=== PATIENT | female | born 1945 | race Caucasian/White ===

== ENCOUNTER 2017-08-20 14:36 | Inpatient (IN) ==
[2017-08-20] MEDS ORDERED: SODIUM CHLORIDE 0.9% 1,000 ML IV STA (15:01)
[2017-08-20 15:21] LABS: Basophils % 0.3 % (0.0-0.8); Eosinophils % 0.1 % (0.00-10.9); Hemoglobin 11.2 GM/DL (12.0-16.0); Immature Granulocytes % 0.4 %; Immature Granulocytes Absolute 0.04 #; Lymphocytes # 0.8 10*3/uL (1.4-4.0); Lymphocytes % 8.5 % (21.3-54.2); Mean Corpuscular HGB Conc 33.9 GM/DL (32-36); Mean Corpuscular Hemoglobin 30 PG (27-34); Mean Corpuscular Volume 88.2 FL (87-102); Mean Platelet Volume 8.8 FL (9.6-12.0); Monocytes # 0.7 10*3/uL (0.11-0.8); Monocytes % 7.1 % (1.7-12.7); Neutrophils # 7.9 10*3/uL (1.4-7.4); Neutrophils % 83.6 % (38.7-73.9); Platelet Count 401 T/CUMM (130-400); Red Blood Count 3.74 MC/CUMM (3.8-5.5); Red Cell Distribution Width 17.3 % (9.3-17.3); White Blood Count 9.4 T/CUMM (4-12)
[2017-08-20 15:35] LABS: PT Patient Result 10.4 SECS; Partial Thromboplastin Time 26.8 SECS (0-40)
[2017-08-20 16:13] LABS: Potassium 3.8 MMOL/L (3.5-5.1); Sodium 137 MMOL/L (136-145)
[2017-08-20 16:15] LABS: Calcium 9.1 MG/DL (8.5-10.1)
[2017-08-20 16:16] LABS: Albumin 3.2 G/DL (3.4-5.0)
[2017-08-20 16:17] LABS: Blood Urea Nitrogen 15 MG/DL (7-18); Glucose 120 MG/DL (74-106); Osmolality,Calculated 274.8 MOS/KG (273-304)
[2017-08-20 16:20] LABS: Alanine Aminotransferase 13 U/L (13-56); Aspartate Amino Transferase 16 U/L (0-37)
[2017-08-20 16:21] LABS: Bilirubin,Total < 0.39 MG/DL (0.2-1.0); Total Protein 7.3 G/DL (6.4-8.3)
[2017-08-20 16:23] LABS: Alkaline Phosphatase 73 U/L (45-117)
[2017-08-20] MEDS ORDERED: SODIUM CHLORIDE 0.9% 1,000 ML IV PRN (17:42)
[2017-08-20] MEDS ORDERED: ONDANSETRON 4 MG/2 ML VIAL IV PRN (19:56)
[2017-08-20] MEDS ORDERED: ACETAMINOPHEN 325 MG TABLET PO PRN (19:56)
[2017-08-20] MEDS ORDERED: MAGNESIUM HYDROXIDE SUSP 30 ML UDCUP PO ONE (19:56)
[2017-08-20] MEDS ORDERED: MAGNESIUM HYDROXIDE SUSP 30 ML UDCUP PO PRN (19:56)
[2017-08-20 20:26] LABS: Hematocrit 27.9 VOL% (35.7-47.0); Hemoglobin 9.2 GM/DL (12.0-16.0)
[2017-08-20] MEDS: PANTOPRAZOLE 40 MG VIAL IV SCH (22:35)
[2017-08-20] MEDS: SODIUM CHLORIDE 0.9% 1,000 ML IV SCH (22:38)
[2017-08-21 01:24] LABS: Hematocrit 25.7 VOL% (35.7-47.0); Hemoglobin 8.4 GM/DL (12.0-16.0)
[2017-08-21 01:25] LABS: Basophils % 0.3 % (0.0-0.8); Eosinophils % 0.2 % (0.00-10.9); Hematocrit 25.2 VOL% (35.7-47.0); Hemoglobin 8.7 GM/DL (12.0-16.0); Immature Granulocytes % 0.5 %; Immature Granulocytes Absolute 0.03 #; Lymphocytes # 0.7 10*3/uL (1.4-4.0); Lymphocytes % 11.1 % (21.3-54.2); Mean Corpuscular HGB Conc 34.5 GM/DL (32-36); Mean Corpuscular Hemoglobin 30 PG (27-34); Mean Corpuscular Volume 87.5 FL (87-102); Mean Platelet Volume 8.9 FL (9.6-12.0); Monocytes # 0.6 10*3/uL (0.11-0.8); Monocytes % 9.4 % (1.7-12.7); Neutrophils # 4.8 10*3/uL (1.4-7.4); Neutrophils % 78.5 % (38.7-73.9); Platelet Count 323 T/CUMM (130-400); Red Blood Count 2.88 MC/CUMM (3.8-5.5); Red Cell Distribution Width 17.3 % (9.3-17.3); White Blood Count 6.1 T/CUMM (4-12)
[2017-08-21 01:42] LABS: Calcium 8.1 MG/DL (8.5-10.1); Osmolality,Calculated 278.4 MOS/KG (273-304); Potassium 3.7 MMOL/L (3.5-5.1)
[2017-08-21] MEDS: SODIUM CHLORIDE 0.9% 1,000 ML IV SCH ×4 (06:22→22:34)
[2017-08-21 07:27] LABS: Hematocrit 25.3 VOL% (35.7-47.0); Hemoglobin 8.4 GM/DL (12.0-16.0)
[2017-08-21] MEDS ORDERED: SODIUM CHLORIDE 0.9% 1,000 ML IV PRN (08:35)
[2017-08-21] MEDS: PANTOPRAZOLE 40 MG VIAL IV SCH ×2 (08:39→20:18)
[2017-08-21] MEDS ORDERED: PANTOPRAZOLE 40 MG TABLET PO SCH (09:00)
[2017-08-21 12:41] LABS: Apearance,Urine CLEAR (Clear); Bacteria,Urine Occasional /HPF (Few); Bilirubin,Urine Negative (Negative); Blood, Urine Negative (Negative); Glucose,Urine (UA) Negative (Negative); Ketones,Urine Negative (Negative); Mucus,Urine Occasional /LPF (Occasional); Nitrite,Urine Negative (Negative); Protein,Urine Negative; RBC,Urine <1 /HPF (0-4); Squamous Epithelial Cell,Urine Occasional /HPF (0-10); Urine Color Straw (Yellow); Urine Specific Gravity 1.008 (1.001-1.035); Urine Urobilinogen < 2.0 EU/DL (0.2-1.0); WBC,Urine 3 /HPF (0-6)
[2017-08-21 16:32] LABS: Hematocrit 32.9 VOL% (35.7-47.0)
[2017-08-21 16:37] LABS: Hemoglobin 10.8 GM/DL (12.0-16.0)
[2017-08-22 04:33] LABS: Basophils % 0.4 % (0.0-0.8); Eosinophils % 0.6 % (0.00-10.9); Hematocrit 31.6 VOL% (35.7-47.0); Hemoglobin 10.5 GM/DL (12.0-16.0); Immature Granulocytes % 0.4 %; Immature Granulocytes Absolute 0.02 #; Lymphocytes # 0.7 10*3/uL (1.4-4.0); Lymphocytes % 14.2 % (21.3-54.2); Mean Corpuscular HGB Conc 33.2 GM/DL (32-36); Mean Corpuscular Hemoglobin 30 PG (27-34); Monocytes # 0.5 10*3/uL (0.11-0.8); Monocytes % 10.1 % (1.7-12.7); Neutrophils # 3.7 10*3/uL (1.4-7.4); Neutrophils % 74.3 % (38.7-73.9); Platelet Count 293 T/CUMM (130-400); Red Blood Count 3.55 MC/CUMM (3.8-5.5); Red Cell Distribution Width 16.9 % (9.3-17.3); White Blood Count 4.9 T/CUMM (4-12)
[2017-08-22 04:46] LABS: Calcium 7.9 MG/DL (8.5-10.1); Osmolality,Calculated 282.8 MOS/KG (273-304); Potassium 3.7 MMOL/L (3.5-5.1)
[2017-08-22] MEDS: PANTOPRAZOLE 40 MG VIAL IV SCH ×2 (10:22→22:06)
[2017-08-22] MEDS: SODIUM CHLORIDE 0.9% 1,000 ML IV SCH ×4 (13:07→22:09)
[2017-08-22] MEDS ORDERED: LACTULOSE 20 GM/30 ML UDCUP PO PRN (13:19)
[2017-08-23 06:25] LABS: Basophils % 0.5 % (0.0-0.8); Eosinophils % 0.5 % (0.00-10.9); Hematocrit 34.1 VOL% (35.7-47.0); Hemoglobin 11.6 GM/DL (12.0-16.0); Immature Granulocytes % 0.3 %; Immature Granulocytes Absolute 0.02 #; Lymphocytes # 0.6 10*3/uL (1.4-4.0); Lymphocytes % 9.3 % (21.3-54.2); Mean Corpuscular Hemoglobin 30 PG (27-34); Mean Corpuscular Volume 86.8 FL (87-102); Mean Platelet Volume 8.8 FL (9.6-12.0); Monocytes # 0.6 10*3/uL (0.11-0.8); Neutrophils # 5.3 10*3/uL (1.4-7.4); Neutrophils % 80.4 % (38.7-73.9); Platelet Count 323 T/CUMM (130-400); Red Blood Count 3.93 MC/CUMM (3.8-5.5); Red Cell Distribution Width 16.3 % (9.3-17.3); White Blood Count 6.5 T/CUMM (4-12)
[2017-08-23 06:56] LABS: Calcium 8.2 MG/DL (8.5-10.1); Potassium 3.3 MMOL/L (3.5-5.1)
[2017-08-23] MEDS: PANTOPRAZOLE 40 MG VIAL IV SCH (08:33)
[2017-08-23 13:27] VITALS: BP 115/59
== END 2017-08-23 17:10 | disposition home or self-care (01) | DRG 394 ==
LOC: N.ED 14:36 → SUATTDRO 16:41 → N.EDINP 16:41 → N.2E 18:58 → N.4E 19:37
PROVIDERS: ADMIT Internal Medicine; ATTEND Internal Medicine